=== PATIENT | female | born 1995 | race Caucasian/White ===

== ENCOUNTER 2017-09-30 10:48 | Emergency (ER) | payer MEDICAID, OTHER ==
[~2017-09-30] VITALS: Ht 157.5 cm; Wt 72.8 kg
[2017-09-30 10:51] VITALS: Ht 157.5 cm; Wt 72.8 kg
[2017-09-30] MEDS ORDERED: ACETAMINOPHEN 325 MG TAB PO ONE (12:00)
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
[2017-09-30 12:28] LABS: ADD UMIC NO; UR ASCORBIC ACID NEGATIVE (NEGATIVE); UR BILIRUBIN (Dip) NEGATIVE (NEGATIVE); UR BLOOD (Dip) NEGATIVE (NEGATIVE); UR CLARITY CLEAR (CLEAR); UR COLOR YELLOW (YELLOW); UR GLUCOSE (Dip) NEGATIVE (NEGATIVE); UR KETONES (Dip) NEGATIVE (NEGATIVE); UR LEUKOCYTE ESTERASE (Dip) NEGATIVE Leu/ul (NEGATIVE); UR NITRITE (Dip) NEGATIVE (NEGATIVE); UR SPECIFIC GRAVITY (Dip) 1.023 (1.003-1.030); UR TOTAL PROTEIN (Dip) NEGATIVE (NEGATIVE); UR UROBILINOGEN (Dip) NEGATIVE (NEGATIVE)
[2017-09-30] MEDS ORDERED: ACET500C5 PO (13:13)
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
[2017-09-30 13:40] VITALS: BP 121/70; PULSE 72; RESP 20; TEMP 98.2
== END 2017-09-30 13:40 | disposition home or self-care (01) ==
LOC: FTE 10:48
DX: R51 Headache (principal); M79.602 Pain in left arm
CPT/HCPCS: 73090; 73110; 81003; Z7502; Z7610

== ENCOUNTER 2018-11-19 19:33 | Emergency (ER) | payer MEDICAID ==
[~2018-11-19] VITALS: Ht 149.9 cm; Wt 76.0 kg
[~2018-11-19 19:33] MED LIST: ACET500C5 PO
[2018-11-19 19:38] VITALS: Ht 149.9 cm; Wt 76.0 kg
[2018-11-19] MEDS ORDERED: DIPHENHYDRAMINE 50 MG INJ IV STA (21:05)
[2018-11-19] MEDS ORDERED: SOD CHLORIDE 0.9% 1,000 ML IV STA (21:05)
[2018-11-19] MEDS ORDERED: KETOROLAC 30 MG INJ IV STA (21:05)
[2018-11-19] MEDS ORDERED: PROCHLORPERAZINE 10 MG INJ IV STA (21:05)
[2018-11-19] MEDS ORDERED: ASPI1TAB31 PO (21:58)
[2018-11-19] MEDS ORDERED: ONDA4TAB14 PO (21:58)
--- NOTE | 2018-11-19 22:02 | ERD ---
ER Documentation Chief Complaint Chief Complaint MATA x1 week w/ vomiting, hx of migraines HPI This is a 23-year-old female who has a history of migraines complaining of migraine headache that she has had for about a week. She states she has been taking Tylenol and sometimes it does get better but it never has completely gone away. She also has nausea and vomiting. No fever. No trauma. Headache was gradual in onset and bilateral frontal. Denies possibility of . ROS All systems reviewed and are negative except as per history of present illness. Medications Home Meds Active Scripts Ondansetron (Ondansetron Odt) 4 Mg Tab.rapdis, 4 MG PO Q6H PRN for NAUSEA AND/OR VOMITING, #20 TAB Prov:CUONG PASTOR PA-C 11/19/18 Aspirin/Acetaminophen/Caffeine (Excedrin Migraine Caplet) 1 Each Tablet, 1 EACH PO Q6, #30 TAB Prov:CUONG PASTOR PA-C 11/19/18 Acetaminophen* (Tylophen*) 500 Mg Capsule, 1 CAP PO Q6H PRN for PAIN AND OR ELEVATED TEMP, #20 CAP Prov:PAIGE BURNETT PA-C 09/30/17 Allergies Allergies: Coded Allergies: No Known Allergy (Unverified , 09/30/17) PMhx/Soc Medical and Surgical Hx: pt denies Medical Hx, pt denies Surgical Hx Hx Alcohol Use: No Hx Substance Use: No Hx Tobacco Use: No Smoking Status: Never smoker FmHx Family History: No diabetes Physical Exam Vitals Vital Signs Date Temp Pulse Resp B/P (MAP) Pulse Ox O2 O2 Flow FiO2 Time Delivery Rate 11/19/18 99.0 100 18 141/83 97 19:38 (102) Physical Exam INITIAL VITAL SIGNS: Reviewed by me GENERAL: Awake, alert and oriented x 4, well appearing, nontoxic, speaking in full sentences. No acute distress HEAD: Atraumatic NECK: Supple. No masses. Full range of motion. No meningismus. No midline tenderness. EYES: EOMI. PERRL. RESPIRATORY: Clear to auscultation bilaterally. Symmetric chest wall rise. No wheezing or rales. No accessory muscle use. CV: Regular rate and rhythm. No murmurs, rubs, or gallops. ABDOMEN: Soft, non-distended. Nontender. Negative [place]. Negative McBurneys point tenderness. No CVA tenderness bilaterally. No guarding. No rebound. Neuro: M/S: Alert and oriented Face: EOMI, face and pharynx with normal sensation and function Motor: Normal strength throughout Sensation: Normal sensation throughout Speech: Normal Cerebel: Normal coordination Normal gait Normal finger to nose Results 24 hrs Laboratory Tests Test 11/19/18 21:13 POC Beta HCG, Qualitative NEGATIVE Current Medications Medications Dose Sig/Kurtis Start Time Status Last (Trade) Ordered Route PRN Stop Time Admin Dose Reason Admin Sodium 1,000 ml @ Q1H STAT 11/19/18 11/19/18 Chloride 1,000 mls/hr IV 21:05 21:23 11/19/18 22:04 10 mg ONCE STAT 11/19/18 DC 11/19/18 Prochlorperaz IV 21:05 21:24 ine 11/19/18 21:06 (Compazine Inj) Ketorolac 15 mg ONCE STAT 11/19/18 DC 11/19/18 Tromethamine IV 21:05 21:23 (Toradol) 11/19/18 21:06 25 mg ONCE STAT 11/19/18 DC 11/19/18 Diphenhydrami IV 21:05 21:23 ne HCl 11/19/18 21:06 (Benadryl) Procedures/MDM The differential diagnosis includes but is not limited to subdural hematoma, epidural hematoma, intracerebral hemorrhage, occult trauma, CVA, meningitis, encephalitis, hypertension, tension, migraine, cluster, cervical spine disease, and others. This young female with history of migraines who presents with a migraine. test is negative. Patient got good relief of her symptoms with IV fluids, Compazine, Benadryl, and Toradol. Neurologically intact low suspicion for intracranial abnormality therefore no CT ordered. Discharged with Excedrin and Zofran. Patient counseled regarding my diagnostic impression and care plan. Prior to discharge all questions answered. Pt agrees with treatment plan and understands strict return precautions. Pt is instructed to follow up with primary care provider within 24-48 hours. Precautionary instructions provided including instructions to return to the ER if not improving or for any worsening or changing symptoms or concerns. Departure Diagnosis: Primary Impression: Migraine Condition: Stable Patient Instructions: Migraine Headache: Stages and Treatment Additional Instructions: Call your primary care doctor TOMORROW for an appointment during the next 1-2 days.See the doctor sooner or return here if your condition worsens before your appointment time. CUONG PASTOR PA-C Nov 19, 2018 22:02
[2018-11-19 22:28] VITALS: BP 137/67; PULSE 94; RESP 18
== END 2018-11-19 22:35 | disposition home or self-care (01) ==
LOC: FTE 19:33
DX: G43.909 Migraine, unspecified, not intractable, without status migrainosus (principal)
CPT/HCPCS: 81025; 96374; 96375; J0780; J1200; J1885; J7030; Z7502